=== PATIENT | female | born 1990 | race Caucasian/White ===

== ENCOUNTER 2018-10-06 15:17 | Emergency (ER) | payer OTHER ==
[~2018-10-06] VITALS: Ht 175.3 cm; Wt 89.4 kg
[~2018-10-06 15:17] MED LIST: TYL3 PO
[2018-10-06 15:53] VITALS: BP 162/91
--- NOTE | 2018-10-06 16:52 | NUR ---
PT AMBULATED TO BED 04.
--- NOTE | 2018-10-06 16:59 | NUR ---
28/F BIB SELF C/O VAG BLEED X TODAY, 7 WEEKS . G3, P3-TWINS. DENIES N/V/D; PATIENT STATES PAIN OF 0/10 AT THIS TIME; VSS; PATIENT POSITIONED FOR COMFORT; HOB ELEVATED; BEDRAILS UP X2; BED DOWN. ER MD MADE AWARE OF PT STATUS.
--- NOTE | 2018-10-06 17:02 | NUR ---
LAB AT BEDSIDE
[2018-10-06 17:10] LABS: BASOPHILS # (AUTO) 0.1 K/uL (0.00-0.22); BASOPHILS % (AUTO) 0.6 % (0.0-2.0); EOSINOPHILS # (AUTO) 0.1 K/uL (0-0.4); EOSINOPHILS % (AUTO) 0.6 % (0.0-4.0); HEMATOCRIT 41.7 % (36-48); LYMPHOCYTES # (AUTO) 2.4 K/uL (2.5-16.5); LYMPHOCYTES % (AUTO) 22.4 % (20.5-51.1); MEAN CORPUSCULAR HEMOGLOBIN 31 pg (27-31); MEAN CORPUSCULAR HGB CONC 34 g/dL (33-37); MEAN CORPUSCULAR VOLUME 93.2 fL (80-94); MONOCYTES # (AUTO) 0.4 K/uL (0.8-1.0); MONOCYTES % (AUTO) 3.9 % (1.7-9.3); NEUTROPHILS # (AUTO) 7.9 K/uL (1.8-7.7); NEUTROPHILS % (AUTO) 72.5 % (42.2-75.2); PLATELET COUNT (AUTO) 210 K/uL (140-450); RED BLOOD CELL COUNT(AUTO) 4.47 MIL/uL (4.20-5.40); RED CELL DISTRIBUTION WIDTH 13.6 % (11.6-13.7); WHITE BLOOD COUNT (AUTO) 10.9 K/uL (4.8-10.8)
[2018-10-06 17:13] LABS: BILIRUBIN,URINE NEGATIVE (NEGATIVE); BLOOD, URINE 3+ (NEGATIVE); COLOR,URINE YELLOW (YELLOW); LEUKOCYTE ESTERASE ,URINE TRACE (NEGATIVE); NITRITE, URINE NEGATIVE (NEGATIVE); UGLUCOSE NEGATIVE (NEGATIVE)
[2018-10-06 17:15] LABS: APPEARANCE,URINE HAZY (CLEAR)
[2018-10-06 17:31] LABS: RBC,URINE 11-20 (MOD) /HPF (0-5); WBC,URINE 0-5 /HPF (0-5)
--- NOTE | 2018-10-06 17:43 | NUR ---
US AT BEDSIDE
[2018-10-06 18:53] VITALS: BP 118/84
--- NOTE | 2018-10-06 18:54 | NUR ---
Patient discharged with v/s stable. Written and verbal after care instructions given and explained. Patient verbalized understanding. Ambulatory with steady gait. All questions addressed prior to discharge. Advised to follow up with PMD.
== END 2018-10-06 18:54 | disposition home or self-care (01) ==
LOC: MED 15:17
DX: O20.0 Threatened abortion (principal); J45.909 Unspecified asthma, uncomplicated; Z3A.01 Less than 8 weeks gestation of pregnancy; Z79.899 Other long term (current) drug therapy
CPT/HCPCS: 36415; 76817; 81001; 81025; 84702; 85025; 86900; 86901; 99284; Q0092; 81002

== ENCOUNTER 2018-10-07 13:34 | Emergency (ER) | payer OTHER ==
[~2018-10-07] VITALS: Ht 175.3 cm; Wt 88.5 kg
[2018-10-07 14:00] VITALS: BP 110/67
--- NOTE | 2018-10-07 14:08 | NUR ---
PATIENT AMBULATED TO BED 1.
--- NOTE | 2018-10-07 14:15 | NUR ---
PT IS A 28 Y/O FEMALE WHO PRESENTS TO THE ED C/O VAGINAL BLEEDING. PT STATES , LMP 08/16/18, ALESHIA 05/07/19 AND X6 WEEKS BEGAN X2 DAYS AGO WITH SMEARING AND NOW REPORTS CLOTS AND VAGINAL BLEEDING. PT DENIES PAIN AT THIS TIME. PT REPORTS 1.5 HOURS/PAD. PT DENIES CP, SOB, N/V/D. PT AWAKE AND ALERT, RR EVEN/UNLABORED. PT REPOSITIONED FOR COMFORT, BED IN LOWEST POSITION. ER MD DR. LOCKETT NOTIFIED. WILL CONTINUE TO MONITOR. MEDHX:ASTHMA RX:
--- NOTE | 2018-10-07 16:15 | NUR ---
Patient discharged with v/s stable. Written and verbal after care instructions given and explained. Patient alert, oriented and verbalized understanding of instructions. Ambulatory with to car. All questions addressed prior to discharge. ID band removed. Patient advised to follow up with PMD.NO Rx given. Patient educated on indication of medication including possible reaction and side effects. Opportunity to ask questions provided and answered.
[2018-10-07 16:28] VITALS: BP 109/62
== END 2018-10-07 16:15 | disposition home or self-care (01) ==
LOC: MED 13:34
DX: O03.9 Complete or unspecified spontaneous abortion without complication (principal); J45.909 Unspecified asthma, uncomplicated; Z3A.01 Less than 8 weeks gestation of pregnancy; Z79.1 Long term (current) use of non-steroidal anti-inflammatories (NSAID)
CPT/HCPCS: 76817; 81002; 81025; 99284; Q0092

== ENCOUNTER 2019-04-20 13:20 | Emergency (ER) | payer OTHER ==
[~2019-04-20] VITALS: Ht 175.3 cm; Wt 88.5 kg
[2019-04-20 13:33] VITALS: BP 154/97
[2019-04-20 18:28] VITALS: BP 132/78
== END 2019-04-20 18:28 | disposition home or self-care (01) ==
LOC: MED 13:20
DX: S50.12XA Contusion of left forearm, initial encounter (principal); S40.022A Contusion of left upper arm, initial encounter; S30.1XXA Contusion of abdominal wall, initial encounter; J45.909 Unspecified asthma, uncomplicated; F17.210 Nicotine dependence, cigarettes, uncomplicated; Z79.891 Long term (current) use of opiate analgesic; Y08.89XA Assault by other specified means, initial encounter; Y93.89 Activity, other specified; Y92.89 Other specified places as the place of occurrence of the external cause; Y99.8 Other external cause status
CPT/HCPCS: 73060; 73090; 99283